=== PATIENT | male | born 1950 | race Caucasian/White ===

== ENCOUNTER 2021-10-21 18:17 | Emergency (ER) | payer OTHER ==
[2021-10-21] MEDS ORDERED: OXYMETAZOLINE 0.05% NASAL SOLUTION 15 ML BOTTLE NS ONE ×2 (18:33→18:55)
[2021-10-21] MEDS ORDERED: LIDOCAINE HCL 1%, 10 MG/ML (20ML VIAL) ONE (18:33)
[2021-10-21 18:41] VITALS: BMI 26.9
[2021-10-21] MEDS ORDERED: TRANEXAMIC ACID 1000 MG/10 ML VIAL IVPUSH ONE (19:13)
[2021-10-21 19:14] LABS: BASO % 1.1 % (0-2.0); EOS % 4.9 % (0-4.5); HEMATOCRIT 30.1 % (35.4-49); HEMOGLOBIN 9.5 GM/dL (11.7-16.9); LYMPH % 22.7 % (8-40); MCH 23.8 pg (25.7-33.7); MCHC 31.7 g/dl (32.0-35.9); MEAN PLT VOLUME 8.2 fl (7.5-11.1); MONO % 8.6 % (3.8-10.2); NEUT % 62.7 % (42.8-82.8); PLATELET COUNT 370 10^3/uL (134-434); RBC 4.01 M/mm3 (4.00-5.60); RDW 19.4 % (11.9-15.9); WHITE BLOOD COUNT 4.9 K/mm3 (4.0-10.0)
[2021-10-21 19:29] LABS: CALCIUM 8.3 mg/dL (8.5-10.1)
[2021-10-21 19:30] LABS: ALBUMIN 3.3 g/dl (3.4-5.0); BLOOD UREA NITROGEN 10.1 mg/dL (7-18)
[2021-10-21 19:33] LABS: CREATININE 0.9 mg/dL (0.55-1.3)
[2021-10-21 19:34] LABS: BILIRUBIN,TOTAL 0.9 mg/dL (0.2-1); TOT PROT 6.6 g/dl (6.4-8.2)
[2021-10-21 19:35] LABS: PROTHROMBIN TIME (PATIENT) 48.9 SEC (9.7-13.0)
[2021-10-21 19:37] LABS: ACTIVATED PTT 39.9 SECONDS (25.2-36.5)
[2021-10-21 19:41] LABS: INR 4.19 (0.83-1.09)
[2021-10-21] MEDS ORDERED: TRANEXAMIC ACID 1000 MG/10 ML VIAL ONE (19:58)
[2021-10-21 22:41] VITALS: BP 128/78; PULSE 105; TEMP 97.1
== END 2021-10-21 22:42 | disposition short-term general hospital (02) ==
LOC: JER 18:17
PROC: 3E033GC Introduction of Other Therapeutic Substance into Peripheral Vein, Percutaneous Approach (ICD-10-PCS; principal; 2021-10-21)
DX: R04.0 Epistaxis (principal); Z79.01 Long term (current) use of anticoagulants
CPT/HCPCS: 36415; 36430; 80053; 85025; 85610; 85730; 86850; 86900; 86901; 93005; 93010; 99291; 99292; P9017